=== PATIENT | female | born 1990 | race Caucasian/White ===

== ENCOUNTER 2018-11-11 18:17 | Observation (INO) | payer BC ==
[~2018-11-11] VITALS: Ht 157.5 cm; Wt 86.2 kg
== END 2018-11-11 23:00 | disposition home or self-care (01) ==
LOC: SPU 18:17
PROVIDERS: ADMIT Specialist; ATTEND Specialist
DX: O36.8120 Decreased fetal movements, second trimester, not applicable or unspecified (principal); Z3A.26 26 weeks gestation of pregnancy
CPT/HCPCS: 76815; G0378

== ENCOUNTER 2018-12-03 14:41 | Observation (INO) | payer BC, OTHER | END 2018-12-03 15:12 | disposition home or self-care (01) | LOC: SPU 14:41 | PROVIDERS: ADMIT Specialist; ATTEND Specialist | DX: O36.8130 Decreased fetal movements, third trimester, not applicable or unspecified (principal); Z3A.29 29 weeks gestation of pregnancy | CPT/HCPCS: G0378 ==

== ENCOUNTER 2018-12-19 10:55 | Observation (INO) | payer BC | END 2018-12-19 12:00 | disposition home or self-care (01) | LOC: SPU 10:55 | PROVIDERS: ADMIT Specialist; ATTEND Specialist | DX: Z34.93 Encounter for supervision of normal pregnancy, unspecified, third trimester (principal); Z3A.32 32 weeks gestation of pregnancy | CPT/HCPCS: G0378 ==

== ENCOUNTER 2018-12-31 10:10 | Observation (INO) | payer BC ==
[~2018-12-31] VITALS: Ht 157.5 cm; Wt 86.2 kg
[2018-12-31] MEDS ORDERED: BETAMET ACET/BETAMET NA PH 30 MG/5 ML VIAL IM ONE (10:45)
== END 2018-12-31 11:35 | disposition home or self-care (01) ==
LOC: SPU 10:10 → INTOOBSV 10:10 → SPU 10:17
PROVIDERS: ADMIT Specialist; ATTEND Specialist
DX: O36.8130 Decreased fetal movements, third trimester, not applicable or unspecified (principal); Z3A.33 33 weeks gestation of pregnancy
CPT/HCPCS: 96372; G0378; J0702

== ENCOUNTER 2019-01-01 12:13 | Observation (INO) | payer BC ==
[~2019-01-01] VITALS: Ht 157.5 cm; Wt 88.9 kg
[2019-01-01] MEDS ORDERED: BETAMET ACET/BETAMET NA PH 30 MG/5 ML VIAL IM ONE (12:30)
== END 2019-01-01 14:20 | disposition home or self-care (01) ==
LOC: SPU 12:13
PROVIDERS: ADMIT Specialist; ATTEND Specialist
DX: O36.8130 Decreased fetal movements, third trimester, not applicable or unspecified (principal); Z3A.33 33 weeks gestation of pregnancy
CPT/HCPCS: 76819; 96372; G0378; J0702

== ENCOUNTER 2019-01-09 12:56 | Observation (INO) | payer BC ==
[~2019-01-09] VITALS: Ht 157.5 cm; Wt 89.4 kg
== END 2019-01-09 14:00 | disposition home or self-care (01) ==
LOC: SPU 12:56
PROVIDERS: ADMIT Specialist; ATTEND Specialist
DX: Z34.93 Encounter for supervision of normal pregnancy, unspecified, third trimester (principal); Z3A.35 35 weeks gestation of pregnancy
CPT/HCPCS: G0378

== ENCOUNTER 2019-01-15 10:05 | Observation (INO) | payer BC | END 2019-01-15 11:40 | disposition home or self-care (01) | LOC: SPU 10:05 | PROVIDERS: ADMIT Specialist; ATTEND Specialist | DX: Z34.93 Encounter for supervision of normal pregnancy, unspecified, third trimester (principal); Z3A.35 35 weeks gestation of pregnancy | CPT/HCPCS: G0378 ==

== ENCOUNTER 2019-01-23 12:43 | Observation (INO) | payer BC ==
[~2019-01-23] VITALS: Ht 157.5 cm; Wt 89.4 kg
== END 2019-01-23 14:04 | disposition home or self-care (01) ==
LOC: SPU 12:43
PROVIDERS: ADMIT Specialist; ATTEND Specialist
DX: O36.8130 Decreased fetal movements, third trimester, not applicable or unspecified (principal); Z3A.37 37 weeks gestation of pregnancy
CPT/HCPCS: G0378

== ENCOUNTER 2019-01-25 21:20 | Inpatient (IN) | payer BC ==
[~2019-01-25] VITALS: Ht 157.5 cm; Wt 92.5 kg
[2019-01-25 23:41] LABS: BILIRUBIN,URINE NEGATIVE (NEGATIVE); BLOOD, URINE NEGATIVE (NEGATIVE); CLARITY/URINE CLEAR (CLEAR); COLOR,URINE YELLOW (YELLOW); GLUCOSE,URINE NEGATIVE (NEGATIVE); KETONES,URINE TRACE (NEGATIVE); LEUKOCYTE ESTERASE ,URINE NEGATIVE (NEGATIVE); NITRITE, URINE NEGATIVE (NEGATIVE); PROTEIN URINE 2+ (NEGATIVE); UROBILINOGEN,URINE 0.2 (0.2-1.0)
[2019-01-25 23:46] LABS: BASOPHILS % (AUTO) 0.2 % (0.0-2.0); EOSINOPHILS # (AUTO) 0.3 K/uL (0.0-0.4); EOSINOPHILS % (AUTO) 2.1 % (0.0-4.0); HEMATOCRIT 38.1 % (36-48); HEMOGLOBIN 12.7 g/dL (12.0-16.0); LYMPHOCYTES # (AUTO) 2.6 K/uL (1.0-5.5); LYMPHOCYTES % (AUTO) 18.8 % (20.5-51.5); MEAN CORPUSCULAR HEMOGLOBIN 30 pg (27-31); MEAN CORPUSCULAR HGB CONC 33 % (32-36); MEAN CORPUSCULAR VOLUME 90 fL (79.0-98.0); MONOCYTES # (AUTO) 0.8 K/uL (0.0-1.0); MONOCYTES % (AUTO) 5.7 % (1.7-9.3); NEUTROPHILS # (AUTO) 10.1 K/uL (1.8-7.7); NEUTROPHILS % (AUTO) 73.2 % (40.0-70.0); PLATELET COUNT (AUTO) 229 K/uL (130-430); RED BLOOD CELL COUNT(AUTO) 4.24 MIL/uL (4.2-6.2); RED CELL DISTRIBUTION WIDTH 14.4 % (9.0-15.0); WHITE BLOOD COUNT (AUTO) 13.9 K/uL (4.8-10.8)
[2019-01-25 23:49] LABS: BACTERIA,URINE RARE /HPF (None Seen); WBC,URINE 0-3 /HPF (0-3)
[2019-01-26] LABS: CALCIUM 9.6 mg/dL (8.4-11.0); CREATININE 0.68 mg/dL (0.55-1.30); POTASSIUM 3.7 mmol/L (3.5-5.1)
[2019-01-26] MEDS ORDERED: LR 1,000 ML IV SCH ×3 (00:02→04:42)
[2019-01-26 00:05] LABS: ALBUMIN 2.5 g/dL (3.4-4.8); TOTAL BILIRUBIN 0.1 mg/dL (0.0-1.0); URIC ACID 5.6 mg/dL (2.4-7.0)
[2019-01-26 00:09] LABS: INR 0.9 (0.8-1.2); PROTHROMBIN TIME 9.3 SECS (9.5-12.5)
[2019-01-26] MEDS ORDERED: TERBUTALINE SULFATE 1 MG/ML VIAL SUBCUT ONE (00:15)
[2019-01-26] MEDS ORDERED: TERBUTALINE SULFATE 1 MG/ML VIAL ONE (00:25)
[2019-01-26] MEDS: NIFEdipine (O.B. USE ONLY) 10 MG CAPSULE PO PRN ×4 (01:14→02:39)
[2019-01-26] MEDS ORDERED: CEFAZOLIN 2 GM IVPB PREMIX 50 ML IV ONE (01:15)
[2019-01-26] MEDS ORDERED: NALBUPHINE HCL 10 MG/ML AMP IVP PRN ×2 (01:15→05:15)
[2019-01-26] MEDS ORDERED: NALBUPHINE HCL 10 MG/ML AMP ONE (01:25)
[2019-01-26] MEDS ORDERED: NIFEdipine (O.B. USE ONLY) 10 MG CAPSULE PO ONE (01:26)
[2019-01-26] MEDS ORDERED: OXYTOCIN/0.9 % SODIUM CHLORIDE 1,000 ML IV ONE (04:42)
[2019-01-26] MEDS ORDERED: ANUSOL 1 EA SUPP.RECT (PREPARATION H) RC PRN (04:45)
[2019-01-26] MEDS ORDERED: OXYCODONE/ACETAMINOPHEN 5-325 TABLET PO PRN (04:45)
[2019-01-26] MEDS ORDERED: MEASLES,MUMPS&RUBELLA VACC/PF 12500 UNIT/0.5 ML VIAL SUBQ PRN (04:45)
[2019-01-26] MEDS ORDERED: RHO(D) IMMUNE GLOBULIN/MALTOSE 1500 UNITS/1.3 ML (WINHRO) IM PRN (04:45)
[2019-01-26] MEDS ORDERED: HYDROcodone/ACETAMIN 5-325 MG TAB (NORCO/ VICODIN) PO PRN (04:45)
[2019-01-26] MEDS ORDERED: LANOLIN 7 GM OINT. TP PRN (04:45)
[2019-01-26] MEDS ORDERED: BISACODYL 10 MG/SUPPOSITORY RC PRN (04:45)
[2019-01-26] MEDS ORDERED: fentaNYL CITRATE/PF 100 MCG/2 ML AMP IVP PRN ×2 (05:15)
[2019-01-26] MEDS ORDERED: ONDANSETRON HCL 4 MG/2 ML VIAL IVP PRN (05:15)
[2019-01-26] MEDS ORDERED: KETOROLAC TROMETHAMINE 60 MG/2 ML VIAL IM PRN (05:15)
[2019-01-26] MEDS ORDERED: DIPHENHYDRAMINE INJ 50 MG/ML VIAL IVP PRN (05:15)
[2019-01-26] MEDS ORDERED: MORPHINE SULFATE 10MG/10ML PF AMP SP SCH (05:15)
[2019-01-26] MEDS ORDERED: NALOXONE HCL 0.4 MG/ML AMP (NARCAN) IVP PRN ×2 (05:15)
[2019-01-26] MEDS ORDERED: DIPHENHYDRAMINE INJ 50 MG/ML VIAL ONE (06:33)
[2019-01-26] MEDS: CEFAZOLIN 1 GM IVPB PREMIX 50 ML IV SCH ×3 (11:15→22:57)
[2019-01-26] MEDS: KETOROLAC TROMETHAMINE 30 MG VIAL IVP SCH ×2 (13:51→20:29)
[2019-01-26] MEDS: SIMETHICONE 80 MG TAB.CHEW PO PRN (20:29)
[2019-01-26] MEDS ORDERED: TEMAZEPAM 15 MG CAPSULE PO PRN (21:00)
[2019-01-26] MEDS: DOCUSATE SODIUM 100 MG CAPSULE PO PRN (22:59)
[2019-01-27 00:35] VITALS: BP_SYST 146
[2019-01-27] MEDS: KETOROLAC TROMETHAMINE 30 MG VIAL IVP SCH (01:58)
[2019-01-27 07:24] LABS: BASOPHILS % (AUTO) 0.4 % (0.0-2.0); EOSINOPHILS # (AUTO) 0.2 K/uL (0.0-0.4); EOSINOPHILS % (AUTO) 1.5 % (0.0-4.0); HEMATOCRIT 30.9 % (36-48); HEMOGLOBIN 10.6 g/dL (12.0-16.0); LYMPHOCYTES # (AUTO) 2.5 K/uL (1.0-5.5); LYMPHOCYTES % (AUTO) 20.5 % (20.5-51.5); MEAN CORPUSCULAR HEMOGLOBIN 31 pg (27-31); MEAN CORPUSCULAR HGB CONC 34 % (32-36); MEAN CORPUSCULAR VOLUME 90 fL (79.0-98.0); MONOCYTES # (AUTO) 0.6 K/uL (0.0-1.0); MONOCYTES % (AUTO) 5.2 % (1.7-9.3); NEUTROPHILS # (AUTO) 8.6 K/uL (1.8-7.7); NEUTROPHILS % (AUTO) 72.4 % (40.0-70.0); PLATELET COUNT (AUTO) 199 K/uL (130-430); RED BLOOD CELL COUNT(AUTO) 3.44 MIL/uL (4.2-6.2); RED CELL DISTRIBUTION WIDTH 14.7 % (9.0-15.0); WHITE BLOOD COUNT (AUTO) 11.9 K/uL (4.8-10.8)
[2019-01-27] MEDS: OXYCODONE/ACETAMINOPHEN 5-325 TABLET PO PRN ×2 (08:52→20:34)
[2019-01-27] MEDS: DOCUSATE SODIUM 100 MG CAPSULE PO PRN ×2 (12:36→18:07)
[2019-01-27] MEDS: SIMETHICONE 80 MG TAB.CHEW PO PRN ×2 (12:36→18:07)
[2019-01-27] MEDS: IBUPROFEN 600 MG TABLET PO SCH ×2 (12:37→18:07)
[2019-01-27] MEDS: SENNOSIDES/DOCUSATE SODIUM 1 TAB TABLET(SENOKOT-S) PO PRN ×2 (12:37→18:07)
[2019-01-28] MEDS: IBUPROFEN 600 MG TABLET PO SCH ×2 (00:12→05:06)
[2019-01-28] MEDS: OXYCODONE/ACETAMINOPHEN 5-325 TABLET PO PRN (02:31)
[2019-01-28] MEDS ORDERED: NS IRRIG SOLN 1000 ML IR ONE (04:25)
[2019-01-28] MEDS ORDERED: LR 1,000 ML IV.SOLN IV ONE (04:25)
[2019-01-28] MEDS ORDERED: OXYTOCIN 10 UNIT/ML VIAL IV ONE (04:25)
[2019-01-28] MEDS ORDERED: BUPIVACAINE /DEX PF 0.75% SPINAL 2 ML AMP INJ ONE (04:25)
[2019-01-28] MEDS ORDERED: MORPHINE SULFATE 10MG/10ML PF AMP EP ONE (04:25)
[2019-01-28] MEDS: DOCUSATE SODIUM 100 MG CAPSULE PO PRN (05:02)
== END 2019-01-28 11:05 | disposition home or self-care (01) | DRG 787 ==
LOC: SPU 21:20 → OBSVTOIN 21:20 → SPU 01-26 13:00
PROVIDERS: ADMIT Specialist; ATTEND Specialist
PROC: 10D00Z1 Extraction of Products of Conception, Low, Open Approach (ICD-10-PCS; principal; 2019-01-28)
DX: O34.211 Maternal care for low transverse scar from previous cesarean delivery (principal); O10.92 Unspecified pre-existing hypertension complicating childbirth; O69.81X0 Labor and delivery complicated by cord around neck, without compression, not applicable or unspecified; O36.5930 Maternal care for other known or suspected poor fetal growth, third trimester, not applicable or unspecified; O11.4 Pre-existing hypertension with pre-eclampsia, complicating childbirth; O24.429 Gestational diabetes mellitus in childbirth, unspecified control; Z37.0 Single live birth; Z3A.37 37 weeks gestation of pregnancy
CPT/HCPCS: 36415; 59899; 80053; 81000-TC; 81002-TC; 84550-TC; 85025; 85384-TC; 85610-TC; 85730-TC; 86592; 86870; 86886; 86900; 86901; 94760; J0690; J1200; J1885; J2274; J2300; J2590; J2790; J3105; J3490; J7120

== ENCOUNTER 2020-04-02 11:04 | Outpatient (CLI) | payer OTHER ==
[2020-04-02 11:38] LABS: BASOPHILS % (AUTO) 0.4 % (0.0-2.0); EOSINOPHILS # (AUTO) 0.2 K/uL (0.0-0.4); EOSINOPHILS % (AUTO) 1.6 % (0.0-4.0); HEMATOCRIT 39.2 % (36-48); HEMOGLOBIN 13.1 g/dL (12.0-16.0); LYMPHOCYTES # (AUTO) 2.5 K/uL (1.0-5.5); LYMPHOCYTES % (AUTO) 23.6 % (20.5-51.5); MEAN CORPUSCULAR HEMOGLOBIN 30 pg (27-31); MEAN CORPUSCULAR HGB CONC 33 % (32-36); MEAN CORPUSCULAR VOLUME 91 fL (79.0-98.0); MONOCYTES # (AUTO) 0.4 K/uL (0.0-1.0); MONOCYTES % (AUTO) 4.2 % (1.7-9.3); NEUTROPHILS # (AUTO) 7.4 K/uL (1.8-7.7); NEUTROPHILS % (AUTO) 70.2 % (40.0-70.0); PLATELET COUNT (AUTO) 291 K/uL (130-430); RED BLOOD CELL COUNT(AUTO) 4.32 MIL/uL (4.2-6.2); RED CELL DISTRIBUTION WIDTH 13.5 % (9.0-15.0); WHITE BLOOD COUNT (AUTO) 10.6 K/uL (4.8-10.8)
[2020-04-02 12:31] LABS: ERYTHROCYTE SEDIMENTATION RATE 7 MM/HR (0-20)
[2020-04-02 16:23] LABS: CALCIUM 8.5 mg/dL (8.4-11.0)
[2020-04-02 16:24] LABS: CREATININE 0.78 mg/dL (0.55-1.30); TOTAL BILIRUBIN 0.6 mg/dL (0.0-1.0)
[2020-04-02 16:25] LABS: ALBUMIN 4.3 g/dL (3.4-4.8); URIC ACID 5.2 mg/dL (2.4-7.0)
[2020-04-02 16:26] LABS: THYROID STIMULATING HORMONE 0.53 uIu/mL (0.34-4.82)
[2020-04-03 04:06] LABS: HEMOGLOBIN A1C 5.3 % (4.8-5.6)
[2020-04-03 08:08] LABS: RA LATEX TURBID 10.3 IU/mL (0.0-13.9)
[2020-04-03 17:11] LABS: ANTI NUCLEAR AB WITH REFLEX Negative (Negative)
== END 2020-04-02 20:26 | disposition home or self-care (01) ==
LOC: SLB 11:04
PROVIDERS: ATTEND Internal Medicine
DX: Z00.00 Encounter for general adult medical examination without abnormal findings (principal)
CPT/HCPCS: 36415; 80053; 80061; 82306; 82607; 83036; 84443-TC; 84550-TC; 85025; 85651-TC; 86038; 86431

== ENCOUNTER 2022-12-28 13:48 | Observation (INO) | payer BC, OTHER ==
[~2022-12-28] VITALS: Ht 157.5 cm; Wt 79.4 kg
[2022-12-28 13:52] VITALS: BP_SYST 148; PULSE 98; RESP 20; TEMP 98.2; O2SAT 100
[2022-12-28] MEDS ORDERED: ONDANSETRON HCL 4 MG/2 ML VIAL IVP ONE (15:00)
[2022-12-28] MEDS ORDERED: DEXAMETHASONE SOD PHOSPHATE 10 MG/ML VIAL IVP ONE (15:00)
[2022-12-28] MEDS ORDERED: PIPERACILLIN/TAZO 3.375 GM in NS 50 ML IV ONE (15:00)
[2022-12-28] MEDS ORDERED: KETOROLAC TROMETHAMINE 30 MG VIAL IVP ONE (15:00)
[2022-12-28] MEDS ORDERED: fentaNYL CITRATE/PF 100 MCG/2 ML AMP IVP ONE (15:00)
[2022-12-28] MEDS ORDERED: NACL 0.9% 1,000 ML IV ONE (15:00)
[2022-12-28 15:24] LABS: BILIRUBIN,URINE NEGATIVE (NEGATIVE); BLOOD, URINE NEGATIVE (NEGATIVE); GLUCOSE,URINE NEGATIVE (NEGATIVE); KETONES,URINE 1+ (NEGATIVE); LEUKOCYTE ESTERASE ,URINE TRACE (NEGATIVE); NITRITE, URINE NEGATIVE (NEGATIVE); PROTEIN URINE NEGATIVE (NEGATIVE); UROBILINOGEN,URINE 0.2 (0.2-1.0)
[2022-12-28 15:30] LABS: BASOPHILS % (AUTO) 0.3 % (0.0-2.0); EOSINOPHILS # (AUTO) 0.2 K/uL (0.0-0.4); EOSINOPHILS % (AUTO) 1.7 % (0.0-4.0); HEMATOCRIT 36.1 % (36-48); HEMOGLOBIN 12.1 g/dL (12.0-16.0); LYMPHOCYTES # (AUTO) 2.2 K/uL (1.0-5.5); LYMPHOCYTES % (AUTO) 23.5 % (20.5-51.5); MEAN CORPUSCULAR HEMOGLOBIN 30 pg (27-31); MEAN CORPUSCULAR HGB CONC 33 % (32-36); MEAN CORPUSCULAR VOLUME 91 fL (79.0-98.0); MONOCYTES # (AUTO) 0.4 K/uL (0.0-1.0); MONOCYTES % (AUTO) 4.2 % (1.7-9.3); NEUTROPHILS # (AUTO) 6.6 K/uL (1.8-7.7); NEUTROPHILS % (AUTO) 70.3 % (40.0-70.0); PLATELET COUNT (AUTO) 287 K/uL (130-430); RED BLOOD CELL COUNT(AUTO) 3.97 MIL/uL (4.2-6.2); WHITE BLOOD COUNT (AUTO) 9.3 K/uL (4.8-10.8)
[2022-12-28 15:41] LABS: ANION GAP 7 (5-15); CALCIUM 8.5 mg/dL (8.4-11.0); CHLORIDE 105 mmol/L (98-107); CREATININE 0.69 mg/dL (0.55-1.30); GFR AFRICAN AMERICAN 129 mL/min (>90); GLUCOSE 98 mg/dL (74-106); UREA NITROGEN, BLOOD 7 mg/dL (8-21)
[2022-12-28 15:46] LABS: ALANINE AMINOTRANSFERASE 31 U/L (12-78); ALBUMIN 3.2 g/dL (3.4-4.8); ASPARTATE AMINOTRANSFERASE 21 U/L (10-37); TOTAL BILIRUBIN 0.2 mg/dL (0.0-1.0)
[2022-12-28 15:52] LABS: CLARITY/URINE SLIGHTLY HAZY (CLEAR); COLOR,URINE STRAW (YELLOW)
[2022-12-28 16:15] LABS: BACTERIA,URINE MANY /HPF (None Seen); RBC,URINE 0-3 /HPF (0-3)
[2022-12-28 16:18] LABS: MUCUS,URINE None Seen /LPF (None Seen)
[2022-12-28] MEDS ORDERED: NITR-85 PO (16:47)
[2022-12-28 17:33] VITALS: BP_SYST 135; PULSE 74; RESP 18; TEMP 97.3; O2SAT 97
== END 2022-12-28 18:18 | disposition home or self-care (01) ==
LOC: SED 13:48 → SPU 17:32
PROVIDERS: ADMIT Specialist; ATTEND Specialist
DX: O26.892 Other specified pregnancy related conditions, second trimester (principal); R00.2 Palpitations; R51.9 Headache, unspecified; O23.42 Unspecified infection of urinary tract in pregnancy, second trimester; Z3A.20 20 weeks gestation of pregnancy
CPT/HCPCS: 99284; 80053; 81000; 85025; 87040; 87086; 84484; 36415; 93005; J7030; G0378